=== PATIENT | female | born 1945 | race Caucasian/White ===

== ENCOUNTER 2017-04-23 09:13 | Day surgery (SDC) | payer MEDICARE, OTHER ==
[~2017-04-23] VITALS: Ht 154.9 cm; Wt 60.5 kg
[2017-04-23] MEDS ORDERED: LISINOPRIL (10:24)
[2017-04-23] MEDS ORDERED: ATORVASTATIN (10:24)
[2017-04-23] MEDS ORDERED: GLIMEPIRIDE (10:24)
[2017-04-23] MEDS ORDERED: METFORMIN (10:24)
[2017-04-23] MEDS ORDERED: PROPOFOL 40 ML ONE (10:38)
[2017-04-23] MEDS ORDERED: LIDOCAINE 2% (SDV) 5 ML INJ ONE (10:39)
[2017-04-23 10:42] VITALS: Ht 154.9 cm; Wt 60.5 kg
[2017-04-23 10:49] VITALS: BP 168/70; PULSE 59; RESP 18
--- NOTE | 2017-04-23 11:36 | OPPN ---
Date/Time of Note Date/Time of Note DATE: 04/23/17 TIME: 11:33 Operative Report Preoperative Diagnosis Abdominal pain Screening Postoperative Diagnosis Gastritis Internal hemorrhoids Operation/Procedure Performed Esophagogastroduodenoscopy and biopsy Colonoscopy Provider: ÁNGELA FERNANDEZ MD Anesthesia Type: MAC Estimated blood loss: none Transfusion Required: no Specimens Gastric biopsy Grafts/Implants: none Complications: no ÁNGELA FERNANDEZ MD Apr 23, 2017 11:36
[2017-04-23 11:50] VITALS: BP 123/68; RESP 20
--- NOTE | 2017-04-23 12:36 | GILP ---
DATE OF PROCEDURE: 04/23/2017 PROCEDURES PERFORMED: 1. Esophagogastroduodenoscopy and biopsy. 2. Colonoscopy. SURGEON: Irina Davis MD. PREOPERATIVE DIAGNOSES: 1. Abdominal pain. 2. Screening colonoscopy. POSTOPERATIVE DIAGNOSES: 1. Gastritis. 2. Gastric mucosal biopsies were taken for Helicobacter pylori test. 3. Colonoscopy all the way to the cecum. 4. Internal hemorrhoids. 5. No colon neoplasm was identified. INDICATION: Ms. Heaven Peoples is a 71-year-old female patient who had upper abdominal pain not responding to therapy. The patient also needed a screening colonoscopy. The procedures and possible complications were well explained to the patient. She understood and consented to the procedures. DESCRIPTION OF PROCEDURE: Under the influence of anesthesia, the gastroscope was carefully introduced into the esophagus. Under direct vision, it was advanced to the stomach, into the pylorus, into the duodenal bulb, and descending duodenum. Findings esophagus: Mucosa was normal. Stomach: The patient had gastritis. Gastric mucosal biopsies were taken for Helicobacter pylori test. Duodenum was normal. The colonoscope was carefully introduced in the rectum. Under direct vision, it was advanced all the way to the cecum. Findings: The patient had internal hemorrhoids. No colon neoplasm was identified. The patient tolerated the procedures very well. There was no complication from the procedures. At the end of procedure, she was awake with stable vital signs and she was discharged home in the care of her family. IMPRESSION: Please see postoperative diagnoses. PLAN: 1. Omeprazole 40 mg p.o. q.a.m. 2. Await Helicobacter pylori test report. Dictated By: MD YAIR Dorantes/cheyenne/ec /Document#: [id number]
== END 2017-04-23 16:59 | disposition home or self-care (01) ==
LOC: GIL 09:13
PROVIDERS: ATTEND Internal Medicine Gastroenterology
DX: Z12.11 Encounter for screening for malignant neoplasm of colon (principal); K29.70 Gastritis, unspecified, without bleeding; K64.8 Other hemorrhoids; I10 Essential (primary) hypertension; E11.9 Type 2 diabetes mellitus without complications
CPT/HCPCS: 82962; 87081